=== PATIENT | female | born 1990 | race Caucasian/White ===

== ENCOUNTER 2019-04-30 05:50 | Day surgery (SDC) | payer OTHER ==
[~2019-04-30] VITALS: Ht 160 cm; Wt 101.2 kg
[~2019-04-30 05:50] MED LIST: ANTIVERT25 MG PO; HYDROXYZINE HCL25 MG PO; IBUPROFEN600 MG PO; KEFLEX500 MG PO; NEXPLANON68 MG SUBD; OXYCODON-ACETA1 EAC2 PO; PHENTERMINE H37.5 MG PO; TYLENOL EXTRA500 MG PO; VENLAFAXINE HCL75 MG PO
--- NOTE | 2019-04-30 08:00 | NUR ---
04/30/19 0759 Rubina Mosquera 0754 PATIENT ARRIVES TO PACU AWAKE, BUT DROWSY. REPORTS MINIMAL PAIN. RESP EVEN AND UNLABORED, ROOM AIR SATS >95%.
--- NOTE | 2019-05-01 10:39 | OR ---
[facility] [address] [facility] [place], [place] [address] Signed DATE OF OPERATION: 04/30/2019 SURGEON: Nicky Sosa MD PREOPERATIVE DIAGNOSIS: KUSH 3. POSTOPERATIVE DIAGNOSIS: KUSH 3, pending pathology. PROCEDURE: Cone biopsy. ANESTHESIA: MAC. ESTIMATED BLOOD LOSS: Minimal. DRAINS: None. INDICATIONS AND FINDINGS: The patient is a 28-year-old female, 4, para 1, VIP3, who was recently diagnosed with recurrent KUSH 3. She underwent a LEEP procedure approximately one year ago for the same diagnosis. She had been a smoker, but has quit. At the time of surgery, exam under anesthesia was normal. At the time of the cone, there was a large nonstaining area posteriorly. DESCRIPTION OF PROCEDURE: The patient was prepped and draped in the dorsal lithotomy position. An open-sided speculum was placed. The anterior lip of the cervix was visualized and grasped with a single-tooth tenaculum. Jexalo-yy-zyerm sutures of 0 chromic were placed at 3 o'clock and 9 o'clock. A paracervical block was also used using 5 mL of 1% lidocaine plain at 3 o'clock and 9 o'clock as well. The cervix was stained with Lugol's. The cone biopsy was then done with a knife starting at 3 o'clock and extending around and back to three. This encompassed the nonstaining area. When the specimen was removed, however, the piece between 11 and 1 was removed separately and the remaining cone removed as one piece. The 11-1 piece was marked at 12 and the 2-11 was marked at 6. There was a small, deeper Electronically Signed By: NICKY SOSA MD 05/01/19 1039 PATIENT NAME: EZEQUIEL RIVAS OPERATIVE REPORT DATE OF : [birth year] REPORT #: [id number] PHYSICIAN: NICKY SOSA MD PCP: EVITA COELHO PAC REPORT IS CONFIDENTIAL AND NOT TO BE RELEASED WITHOUT AUTHORIZATION [facility] [address] [place], [place] [address] Signed piece at 9 o'clock and this was removed separately. After removal of the specimen, ECC was done and there did appear to be at least a centimeter of the endocervical canal. The Kevorkian curette was used with a small amount of tissue found. Following this, the base of the cone was treated with cautery. This was followed by Monsel's solution. Repeat cautery was used posteriorly with good hemostasis noted. Following this, the base of the cone was packed with Gel-Foam and a second suture placed from 3-9 o'clock closing the cervix over the Gel-Foam and this was using a 2-0 chromic. Following this, the procedure was terminated with removal of the instruments. The patient tolerated this well, was taken to the recovery room in good condition. Nicky Sosa MD PJW/MODL /[id number] cc: CASEY Christine Copies: ~ Electronically Signed By: NICKY SOSA MD 05/01/19 1039 PATIENT NAME: EZEQUIEL RIVAS OPERATIVE REPORT DATE OF : [birth year] REPORT #: [id number] PHYSICIAN: NICKY SOSA MD PCP: EVITA COELHO REPORT IS CONFIDENTIAL AND NOT TO BE RELEASED WITHOUT AUTHORIZATION
--- NOTE | 2019-05-04 15:04 | PATH ---
[facility] [address] [place], [place] [address] Signed SPECIMEN(S): A 9 O'CLOCK DEEP CERVICAL BIOPSY SPECIMEN(S): B ENDOCERVICAL CURETTINGS SPECIMEN(S): C CONE 11 TO 1 MARKED AT 12 SPECIMEN(S): D CONE 2 TO 10 MARKED AT 6 SPECIMEN SOURCE: A. 9 O'CLOCK DEEP CERVICAL BIOPSY B. ENDOCERVICAL CURETTINGS C. CONE 11 TO 1 MARKED AT 12 D. CONE 2 TO 10 MARKED AT 6 CLINICAL HISTORY: Recurrent KUSH 3. FINAL PATHOLOGIC DIAGNOSIS: A. Uterus, cervix, 9 o'clock deep cervical biopsy: - Stromal tissue, negative for malignancy and atypia. - No glandular tissue present. B. Uterus, endocervix, curettage: - No microscopic pathologic diagnosis. C. Uterus, cervix, 11 to 1 o'clock region, cone biopsy: - High grade squamous intraepithelial lesion (See microscopic examination) . - Margins unable to evaluate (see microscopic examination). - Moderate subacute cervicitis. D. Uterus, cervix, 2 to 10 o'clock region, cone biopsy: - No microscopic pathologic diagnosis. COMMENT: The patient had a Pap smear received at [facility] 03/15/2019, with the diagnosis of high-grade squamous intraepithelial lesion ([id number]). The Pap smear is reviewed and the cytologic diagnosis is confirmed. LINDA:smn:C2NR MICROSCOPIC EXAMINATION: Histologic sections of all submitted blocks are examined by light microscopy. These findings, together with the gross examination, support the pathologic diagnosis. C. There is an area of high grade dysplasia in block C1, but the squamous mucosa is not of full thickness and there is some heat type artifact present. Immunostains for p16 and Ki-67 are obtained PATIENT NAME: EZEQUIEL RIVAS PATHOLOGY DATE OF : [birth year] REPORT #: [id number] PHYSICIAN: JENNIFER PATHOLOGY PCP: EVITA COELHO PAC REPORT IS CONFIDENTIAL AND NOT TO BE RELEASED WITHOUT AUTHORIZATION [facility] [address] [place], [place] [address] Signed along with appropriately positive controls on block C1. Results support the above diagnoses. The area of interest is negative for p16. Ki67 is positive in the full thickness of the area of interest. This, with histology, is consistent with a high grade squamous intraepithelial lesion. No invasive lesion is seen. KUSH grade is not assigned as the full thickness of the epithelium is not present. Margins of the one piece of cervix with the dysplastic epithelium cannot be evaluatedmucosa, both glandular and squamous, is around the entire biopsy and was not an en face submission. That said, the area of dysplasia is small about 1 mm in maximum extent. GROSS DESCRIPTION: Four specimens are received in four containers, labeled "MARIO." A. The specimen, labeled "MARIO, cervical biopsy at 9 o'clock," is received in formalin and consists of one piece of pink-padron, soft tissue that measures 0.8 x 0.4 x 0.4 cm. Specimen is bisected. Specimen is entirely submitted in cassette (A1). B. The specimen, labeled "MARIO, endocervical curettings," is received in formalin and consists of irregular shaped mucinous and hemorrhagic tissue that aggregate measures 1.6 x 0.8 x 0.1 cm. Specimen is entirely submitted in cassette (B1). C. The specimen, labeled "MARIO, colon biopsy 11-1," is received in formalin and consists of one piece of cervical tissue that is irregular shaped and measured 2.5 x 1.5 x 0.5 cm. The specimen is marked with a black stitch as 12 o'clock. Specimen is inked: 12-6-black, 6-12-blue. Specimen is serial sectioned and entirely submitted in two cassettes (C1-C2). Cassette summary: (C1) 12 o'clock half (C2) 6 o'clock half. D. The specimen, labeled "MARIO, cone biopsy 2-10," is received in formalin and consists of one piece of cervical tissue that measures 1.7 x 1.5 x 0.8 cm. The specimen is marked with a black stitch as 6 o'clock. Specimen is inked: 12 to 6-black, 6-12-blue. Specimen is serial sectioned and entirely submitted in two cassettes (D1-D2). Cassette summary: (D1) 12 o'clock half (D2) 6 o'clock half. JS (under the direct supervision of a pathologist) The Gross Description was prepared using a voice recognition system. The PATIENT NAME: EZEQUIEL RIVAS PATHOLOGY DATE OF : [birth year] REPORT #: [id number] PHYSICIAN: JENNIFER MONTERO PCP: EVITA COELHO PAC REPORT IS CONFIDENTIAL AND NOT TO BE RELEASED WITHOUT AUTHORIZATION [address] [address] Signed report was reviewed for accuracy; however, sound-alike word errors, addition and/or deletions may occur. If there is any question about this report, please contact Client Services. ADDITIONAL NOTES: Immunohistochemical and/or in situ hybridization studies were performed on this case with the appropriate positive controls that react as expected. This test was developed and its performance characteristics determined by [facility]. It has not been cleared or approved by the U.S. Food and Drug Administration. The FDA has determined that such clearance or approval is not necessary. This test is used for clinical purposes. It should not be regarded as investigational or for research. [facility] is certified under the Clinical Laboratory Improvement Amendments of 1988 (CLIA) as qualified to perform high complexity clinical laboratory testing. PERFORMING LABORATORY: The technical component was performed by [facility], [address] [place] [id number] (Vascular Specialists: Yashira Brandon MD; CLIA# [id number]). [facility], [address] [place] [address] (Vascular Specialists: Lamont Baltazar MD; CLIA# [id number]). Diagnostician: Lamont Baltazar MD Pathologist Electronically Signed 05/04/2019 Copies: ~ PATIENT NAME: EZEQUIEL RIVAS PATHOLOGY DATE OF : [birth year] REPORT #: [id number] PHYSICIAN: JENNIFER MONTERO PCP: EVITA COELHO PAC REPORT IS CONFIDENTIAL AND NOT TO BE RELEASED WITHOUT AUTHORIZATION
== END 2019-04-30 08:25 | disposition home or self-care (01) ==
LOC: OPS 05:50 → DS 05:50 → OPS 06:45 → DS 06:45 → OPS 08:25
PROVIDERS: Obstetrics & Gynecology
PROC: 0UBC7ZX Excision of Cervix, Via Natural or Artificial Opening, Diagnostic (ICD-10-PCS; principal; 2019-04-30 06:45)
DX: D06.1 Carcinoma in situ of exocervix (principal); N72 Inflammatory disease of cervix uteri; Z87.891 Personal history of nicotine dependence; Z88.0 Allergy status to penicillin; Z91.018 Allergy to other foods
CPT/HCPCS: 00940; J1885; J2250; J2405; J2704; J2765; J7121

== ENCOUNTER 2021-05-24 11:48 | Emergency (ER) | payer OTHER ==
[~2021-05-24] VITALS: Ht 160 cm; Wt 98.4 kg
== END 2021-05-24 15:49 | disposition home or self-care (01) ==
LOC: ED 11:48
DX: R51.9 Headache, unspecified (principal); Z87.891 Personal history of nicotine dependence; Z88.0 Allergy status to penicillin; Z79.899 Other long term (current) drug therapy
CPT/HCPCS: 99283

== ENCOUNTER 2024-12-01 07:37 | Day surgery (SDC) | payer OTHER ==
[~2024-12-01] VITALS: Ht 160 cm; Wt 92.0 kg
[~2024-12-01 07:37] MED LIST changes: +ALDACTONE25 MG PO; +IBLOOD GLUCOSE TEST STRIP 1 EA TEST VI PRN; +KETOROLAC TROME10 MG PO; +LACTATED RINGER'S 1,000 ML IV SCH; +LIDOCAINE HCL 1% 5 ML SDV INJ ONE; +METFORMIN HCL500 MG PO
[2024-12-01 08:13] VITALS: BP 127/58
[2024-12-01] MEDS ORDERED: fentaNYL citrate 100 MCG/2 ML VIAL ONE (09:51)
[2024-12-01] MEDS ORDERED: KETAMINE in NS 50 MG/5 ML SYR ONE (09:51)
[2024-12-01] MEDS ORDERED: DEXAMETHASONE SOD PHOS 4 MG/ML VIAL ONE (09:51)
[2024-12-01] MEDS ORDERED: MAGNESIUM SULFATE 1 GM/2 ML VIAL ONE (09:51)
[2024-12-01] MEDS ORDERED: SODIUM CHLORIDE 0.9% 40 ML IV ONE (09:52)
[2024-12-01] MEDS ORDERED: LIDOCAINE HCL 2% 5 ML SDV ONE (09:52)
[2024-12-01] MEDS ORDERED: ACETAMINOPHEN 1,000 MG/100 ML VIAL ONE (09:52)
[2024-12-01] MEDS ORDERED: ROCURONIUM BROMIDE 50 MG/5 ML SYR ONE (09:52)
[2024-12-01] MEDS ORDERED: SCOPOLAMINE 1 MG/3 DAYS PATCH 1 EACH TDSY ONE (10:12)
[2024-12-01] MEDS ORDERED: FAMOTIDINE 20 MG/ 2 ML VIAL ONE (10:20)
[2024-12-01] MEDS ORDERED: BUPIVACAINE HCL 0.5% 30 ML VIAL ONE (10:39)
[2024-12-01] MEDS ORDERED: GLYCOPYRROLATE 1 MG/5 ML MDV ONE (10:39)
[2024-12-01] MEDS ORDERED: SUGAMMADEX SODIUM 200 MG/2 ML ML ONE (11:07)
[2024-12-01] MEDS ORDERED: NALOXONE HCL 0.4 MG SYR IV PRN (11:15)
[2024-12-01] MEDS ORDERED: IBLOOD GLUCOSE TEST STRIP 1 EA TEST VI PRN (11:15)
[2024-12-01] MEDS ORDERED: KETOROLAC TROMETHAMINE 30 MG/ML VIAL IV PRN (11:15)
[2024-12-01] MEDS ORDERED: fentaNYL citrate 50 MCG/ML SDV IV PRN (11:15)
--- NOTE | 2024-12-01 11:26 | NUR ---
12/01/24 [place]6 Bobbi Mays 1119: PT ARRIVES TO PACU ON 6L VIA MASK. REPORT RECEIVED FROM G[employer]RILL OPERATOR AND MEDICATION ADMINISTRATION PROFESSIONAL. SHE WAKES UP EASILY, EDUCATED TO NOT RUB HER EYES. KASI 1125: PT REPORTS MILD PAIN, NO NAUSEA. SHE STATES SHE HAS TO PEE, SHE IS EDUCATED THAT SHE JUST HAD HER BLADDER EMPTIED AND SHE MAY BE HAVING IRRITATION FROM THE REMOVAL. IF SHE WOULD LIKE A BEDPAN SHE CAN BE PUT ON ONE, SHE DENIES THIS OFFER.
[2024-12-01 11:53] VITALS: BP 126/74
--- NOTE | 2024-12-01 12:04 | NUR ---
1155: PATIENT BACK IN DAY SURGERY ROOM FROM PACU. RATES PAIN 2-3/10 IN ABDOMEN. ABDOMEN WITH 3 LAP SITES. SCANT AMOUNT OF DRAINAGE AT EACH SITE. VS CHECKED. IV SITE WNL. ICE WATER, SODA, AND CRACKERS PLACED AT BEDSIDE. AT BEDSIDE. CALL LIGHT WITHIN REACH. SCDs ON.
[2024-12-01 12:50] VITALS: BP 122/66
--- NOTE | 2024-12-01 13:22 | NUR ---
1230: PATIENT ASSISTED OOB AND TO BATHROOM. GAIT STEADY. VOID WITHOUT DIFFICULTY. GAIT STEADY BACK TO ROOM. PATIENT GETTING DRESSED WITH HELP FROM . 1240: DISCHARGE INSTRUCTIONS GIVEN TO PATIENT AND . 1250: VS CHECKED. PATIENT TOLERATED ICE WATER, SODA, AND CRACKERS. IV DC'D WNL. TIP INTACT. DRESSING APPLIED. 1259: PATIENT DISCHARGED TO HOME VIA WHEELCHAIR WITH .
[2024-12-01] MEDS ORDERED: SEVOFLURANE 250 ML BTL INH ONE (14:45)
--- NOTE | 2024-12-03 07:53 | OR ---
[address] [address] Signed DATE OF OPERATION: 12/01/2024 SURGEON: Christy Hoskins MD PREOPERATIVE DIAGNOSES: 1. Left adnexal mass. 2. Pelvic pain. POSTOPERATIVE DIAGNOSES: 1. Left adnexal mass. 2. Pelvic pain. PROCEDURE: Diagnostic laparoscopy with laparoscopic left adnexal cystectomy and left salpingectomy. FINDINGS: Approximately 4 cm left adnexal/paratubal cyst encased in scar tissue. Normal left ovary. Normal left fallopian tube other than scar tissue attachment to the left adnexal cyst. Normal uterus, normal right fallopian tube. Normal right ovary. Normal anterior and posterior cul-de-sac, normal appendix, gallbladder not visualized/surgically absent. ANESTHESIA: In general plus local. CUTTING PRESSMAN: None. IV FLUIDS: 900 mL crystalloid. ESTIMATED BLOOD LOSS: Less than 5 mL. URINE OUTPUT: 50 mL clear urine. DRAINS: None. SPECIMENS: Electronically Signed By: CHRISTY HOSKINS MD 12/03/24 0753 PATIENT NAME: EZEQUIEL CRUZ OPERATIVE REPORT DATE OF : [birth year] REPORT #: [id number] PHYSICIAN: CHRISTY HOSKINS MD PCP: EVITA COELHO PAC REPORT IS CONFIDENTIAL AND NOT TO BE RELEASED WITHOUT AUTHORIZATION [address] [address] Signed Left fallopian tube and left adnexal cyst wall. COUNTS: Correct x2. COMPLICATIONS: None apparent. TECHNIQUE IN DETAIL: With informed consent and negative hCG, the patient was taken to the operating room where she underwent rapid sequence induction and was given intubation through a general endotracheal tube. She underwent a brief exam under anesthesia. She was prepped and draped in sterile fashion. Her lower extremities have been placed in SCD pneumatic compression devices at the beginning of the case for DVT prophylaxis. Time-out was performed per protocol. A speculum was placed and the cervix was visualized. A single-tooth tenaculum was placed on the anterior lip of the cervix and Shafer cannula was placed in the cervical canal. Speculum was removed. A red rubber catheter was placed in the bladder and the bladder was emptied. The catheter was wedged in between the arms of a tenaculum to leave it in place during the procedure. Over gloves were removed. Attention was turned to the abdomen. 5 mL of 0.5% Marcaine were injected periumbilically and another 5 mL were injected suprapubically. An approximately 1 to 1-1/2 cm periumbilical skin incision was made. A Veress needle was inserted into the abdomen without difficulty. It was attached to CO2 insufflation and opening pressure was 2 mmHg. With an adequate pneumoperitoneum created, the Veress needle was removed and a 5 mm non-bladed Visiport trocar was inserted under direct visualization and without difficulty. With direct visualization of the abdominal contents, the patient was placed in Trendelenburg position. The area underneath the Veress needle insertion site was inspected and found to be unremarkable. A 1 cm suprapubic incision was made and a 2nd 5 mm non-bladed port was inserted under direct visualization and without difficulty. The pelvic contents were then examined with the above mentioned findings. At this time, it was determined that we would need a 3rd port. We chose an area in the right lower quadrant lateral to the inferior epigastric vessels. 5 mL of 0.5% Marcaine were injected at this site. A 1 cm incision was made and a 5 mm non-bladed port was inserted under direct visualization and again without difficulty. We then were able to inspect the adnexal cyst more closely and assess the level of the adhesions. It was determined that we would have to take some of the adhesions down. Some of the Electronically Signed By: CHRISTY HOSKINS MD 12/03/24 0753 PATIENT NAME: EZEQUIEL CRUZ OPERATIVE REPORT DATE OF : [birth year] REPORT #: [id number] PHYSICIAN: CHRISTY HOSKINS MD PCP: EVITA COELHO PAC REPORT IS CONFIDENTIAL AND NOT TO BE RELEASED WITHOUT AUTHORIZATION [facility] [address] [place], [place] [address] Signed adhesions were descending colon side that was attached to the left pelvic sidewall. We pulled the fat away from the left pelvic sidewall and using the LigaSure device, we clamped, cauterized and cut, entering the left sidewall and the peritoneum. We dissected away the overlying fat to release the descending colon. We did approximately 2 to 2.5 cm of dissection. This freed up enough of the cyst that the cyst was no longer mostly covered by colon. There were some adhesions to the distal end of the left ovary. These were clamped, cauterized and cut using the Holcomb device. We paid careful attention of course to the location of the descending colon. This cyst was very close to the tube and had taken over the mesosalpinx and we could not get a good separation between the left fallopian tube and the cyst wall, so the decision was made to transect the left fallopian tube at the proximal isthmic portion. The tube was doubly cauterized, cut, and the portion of the mesosalpinx was cauterized cut until we were able to get close to the cyst. The overlying mesosalpinx was cauterized and cut using the Holcomb device. We also did some blunt dissection to free up the majority of the cyst and cyst wall. We then tried to grasp the cyst and elevate it to continue the dissection around the cyst wall, but at this point, the cyst wall burst releasing serous fluid. We then grabbed the cyst wall, elevated it and dissected the majority of it. Partial of it was deep and we were unable to visualize well, so we transected the cyst wall with the Holcomb device removing approximately 70% of the cyst wall. The mesosalpinx, remainder of the cyst wall, left pelvic sidewall, left ovary were irrigated with suction irrigation device and irrigant was removed. We inspected the area of intervention and good hemostasis was noted. At this point, we determined that the procedure was complete. The right lower quadrant trocar was removed and monitored from within and found to be hemostatic. The suprapubic trocar was also removed and good hemostasis was noted also from within. All CO2 was then released. Periumbilical trocar was removed. The skin incisions were closed with 4-0 Vicryl. Steri-Strips and Dermabond were placed. Bandage was placed over the Steri-Strips. The red rubber catheter was removed. The single-tooth tenaculum and the Shafer cannula were removed. The cervix was assessed and good hemostasis at the tenaculum sites was noted. DISPOSITION: The patient was extubated in the operating room and she was taken to the recovery room in stable condition. Electronically Signed By: CHRISTY HOSKINS MD 12/03/24 0753 PATIENT NAME: EZEQUIEL CRUZ OPERATIVE REPORT DATE OF : [birth year] REPORT #: [id number] PHYSICIAN: CHRISTY HOSKINS MD PCP: EVITA COELHO PAC REPORT IS CONFIDENTIAL AND NOT TO BE RELEASED WITHOUT AUTHORIZATION [address] [address] Signed Christy Hoskins MD BB/MODL /[id number] Copies: ~ Electronically Signed By: CHRISTY HOSKINS MD 12/03/24 0753 PATIENT NAME: EZEQUIEL CRUZ OPERATIVE REPORT DATE OF : [birth year] REPORT #: [id number] PHYSICIAN: CHRISTY HOSKINS MD PCP: EVITA COELHO PAC REPORT IS CONFIDENTIAL AND NOT TO BE RELEASED WITHOUT AUTHORIZATION
--- NOTE | 2024-12-04 15:30 | PATH ---
[facility] [address] [place], [place] [address] Signed SPECIMEN(S): A LEFT ADNEXAL CYST SPECIMEN SOURCE: A. LEFT ADNEXAL CYST CLINICAL HISTORY: Left adnexal cyst, pelvic pain; adnexal mass. FINAL PATHOLOGIC DIAGNOSIS: Left adnexal cyst, resection: - Complete cross-section of fallopian tube with fimbriated end. - Occasional dilated lymphatic vessels are identified; however, there are no epithelial-lined cysts in the section examined. - Otherwise, fallopian tube has no specific histopathologic abnormality. - Multiple portions of benign serous cystadenoma. - Negative for borderline changes and malignancy. SDL MICROSCOPIC EXAMINATION: Histologic sections of all submitted blocks are examined by light microscopy. These findings, together with the gross examination, support the pathologic diagnosis. GROSS DESCRIPTION: The specimen, labeled and designated "LouiseRonald ny, " and designated on the requisition "left adnexal cyst," is received in formalin and consists of 5.6 x 0.7 cm fallopian tube with delicate fimbria. The serosal surface is violaceous and smooth with paratubal cysts. Cut sections reveal a pinpoint lumen. Separate within the container is a pink membranous tissue fragment that is 3.2 x 1.5 x 0.7 cm. The specimen is entirely submitted in (A1-A2). FB (under the direct supervision of a pathologist) The Gross Description was prepared using a voice recognition system. The report was reviewed for accuracy; however, sound-alike word errors, addition and/or deletions may occur. If there are any questions about this report, please contact Client Services. ADDITIONAL NOTES: Immunohistochemical and/or in situ hybridization studies if performed in this case included appropriate positive controls that reacted as expected. This test was developed and its performance PATIENT NAME: EZEQUIEL CRUZ PATHOLOGY DATE OF : [birth year] REPORT #: [id number] PHYSICIAN: JENNIFER MONTERO PCP: EVITA COELHO PAC REPORT IS CONFIDENTIAL AND NOT TO BE RELEASED WITHOUT AUTHORIZATION [facility] [address] [place], [place] [address] Signed characteristics determined by [facility]. It has not been cleared or approved by the U.S. Food and Drug Administration. The FDA has determined that such clearance or approval is not necessary. This test is used for clinical purposes. It should not be regarded as investigational or for research. [facility] is certified under the Clinical Laboratory Improvement Amendments of 1988 (CLIA) as qualified to perform high complexity clinical laboratory testing. PERFORMING LABORATORY: Technical component was performed by [facility], [address] [place] [id number] (CLIA# [id number]). Professional interpretation was performed by [facility], [address] [place] [id number] (CLIA#: [id number]). Diagnostician: Tracie Sandoval MD Pathologist Electronically Signed 12/04/2024 Copies: ~ PATIENT NAME: EZEQUIEL CRUZ PATHOLOGY DATE OF : [birth year] REPORT #: [id number] PHYSICIAN: JENNIFER MONTERO PCP: EVITA COELHO PAC REPORT IS CONFIDENTIAL AND NOT TO BE RELEASED WITHOUT AUTHORIZATION
== END 2024-12-01 12:59 | disposition home or self-care (01) ==
LOC: DS 07:37
PROVIDERS: ATTEND Obstetrics & Gynecology
PROC: 0UT64ZZ Resection of Left Fallopian Tube, Percutaneous Endoscopic Approach (ICD-10-PCS; principal; 2024-12-01 10:00)
DX: D28.2 Benign neoplasm of uterine tubes and ligaments (principal); E66.9 Obesity, unspecified; E78.2 Mixed hyperlipidemia; Z79.899 Other long term (current) drug therapy; Z88.0 Allergy status to penicillin
CPT/HCPCS: 00840; 84703; J0131; J1100; J1790; J2003; J2405; J2704; J3010; J3475; J3490; J7121

== ENCOUNTER 2025-03-31 05:35 | Emergency (ER) | payer OTHER ==
[~2025-03-31] VITALS: Ht 160 cm; Wt 92.0 kg
[~2025-03-31 05:35] MED LIST changes: -IBLOOD GLUCOSE TEST STRIP 1 EA TEST VI PRN; -LACTATED RINGER'S 1,000 ML IV SCH; -LIDOCAINE HCL 1% 5 ML SDV INJ ONE
[2025-03-31 05:52] LABS: BASOPHILS 0.7 % (0.1-1.2); EOSINOPHILS 1.6 % (0.7-5.8); LYMPHOCYTES 40.9 % (19.3-51.7); MCH 31.6 PG (25.6-32.2); MCHC 33.9 g/dL (32.2-35.5); MCV 93.3 fL (79.4-94.8); MONOCYTES 7.2 % (4.7-12.5); NEUTROPHILS 49.4 % (34.0-71.1); RBC 4.33 M/uL (3.93-5.22)
[2025-03-31] MEDS ORDERED: KETOROLAC TROMETHAMINE 30 MG/ML VIAL IV ONE (06:00)
[2025-03-31] MEDS ORDERED: LACTATED RINGER'S 1,000 ML IV ONE (06:00)
[2025-03-31 06:08] LABS: ALCOHOL, MEDICAL 34.0 ng/dL (<3); ALT (SGPT) 39.0 U/L (14-59); AST (SGOT) 19.0 U/L (15-37); GLOMERULAR FILTRATION RATE,EST 111.0 mL/min (>60); PROTEIN, TOTAL 7.5 g/dL (6.4-8.2); UREA NITROGEN 12.0 mg/dL (7-18)
[2025-03-31] MEDS ORDERED: ONDANSETRON ODT8 MG PO (07:17)
[2025-03-31] MEDS ORDERED: POTASSIUM CHLORIDE 10 MEQ TABCR PO ONE (07:30)
[2025-03-31] MEDS ORDERED: LORazepam 1 MG HOME.PACK PO ONE (07:30)
[2025-03-31] MEDS ORDERED: ONDANSETRON 4 MG HOME.PACK SL ONE (07:30)
[2025-03-31 07:44] LABS: BLOOD/HGB, URINE NEGATIVE (Negative); KETONE, URINE SMALL (Negative); LEUK ESTERASE, URINE NEGATIVE (negative); NITRITE, URINE NEGATIVE (negative)
[2025-03-31 07:55] VITALS: BP 105/56
[2025-03-31 09:16] LABS: AMPHETAMINES, URINE NEGATIVE (NEGATIVE); BARBITURATES, URINE NEGATIVE (NEGATIVE); BENZODIAZEPINE, URINE NEGATIVE (NEGATIVE); CANNABINOID, URINE NEGATIVE (NEGATIVE); COCAINE, URINE NEGATIVE (NEGATIVE); ECSTASY, URINE NEGATIVE (NEGATIVE); FENTANYL, URINE NEGATIVE (NEGATIVE); METHADONE, URINE NEGATIVE (NEGATIVE); OPIATES, URINE NEGATIVE (NEGATIVE); OXYCODONE, URINE NEGATIVE (NEGATIVE); PHENCYCLIDINE, URINE NEGATIVE (NEGATIVE)
== END 2025-03-31 07:55 | disposition home or self-care (01) ==
LOC: ED 05:35
PROVIDERS: Family Medicine
DX: R56.9 Unspecified convulsions (principal); R55 Syncope and collapse; Z79.84 Long term (current) use of oral hypoglycemic drugs; Z88.0 Allergy status to penicillin; Z87.891 Personal history of nicotine dependence
CPT/HCPCS: 36415; 70450; 71101; 80053; 80307; 81003; 83690; 83735; 84703; 85025; 96361; 96374; 96375; 99285-25; A9270; G0480; J1790; J1885; J2405; J7121